=== PATIENT | female | born 1935 | race Caucasian/White ===

== ENCOUNTER → 2021-11-16 | Outpatient (CLI) | payer OTHER | LOC: HEART 5 11-15 14:30 | DX: I10 Essential (primary) hypertension (principal); I48.91 Unspecified atrial fibrillation; R53.83 Other fatigue; I34.0 Nonrheumatic mitral (valve) insufficiency; R00.2 Palpitations; I27.20 Pulmonary hypertension, unspecified; I07.1 Rheumatic tricuspid insufficiency | CPT/HCPCS: 93306 ==